=== PATIENT | female | born 1995 ===

== ENCOUNTER 2018-06-18 18:52 | Emergency (ER) | payer MEDICAID ==
[2018-06-18 19:10] VITALS: TEMP 98.4; O2SAT 98; BMI 34.1
--- NOTE | 2018-06-18 20:35 | C.PDOC ---
History Of Present Illness Patient comes in complaining of right ankle pain for one week. She states she twisted extremity last week was seen at [facility] had xrays and told it was sprained. Patient has not taken any medications. She continues to have pain. She needs note for work stating she cannot be on her feet. Denies any new injury. Time Seen by Provider: 06/18/18 19:09 Chief Complaint (Nursing): Lower Extremity Problem/Injury History Per: Patient History/Exam Limitations: no limitations Onset/Duration Of Symptoms: Days Past Medical History Reviewed: Historical Data, Nursing Documentation, Vital Signs Vital Signs: Last Vital Signs Temp 98.4 F 06/18/18 19:01 Pulse 100 H 06/18/18 19:01 Resp 16 06/18/18 19:01 BP 112/78 06/18/18 19:01 Pulse Ox 98 06/18/18 19:01 - Medical History PMH: No Chronic Diseases Family History: States: Unknown Family Hx - Social History Hx Alcohol Use: No Hx Substance Use: No - Immunization History Hx Tetanus Toxoid Vaccination: No Hx Influenza Vaccination: No Hx Pneumococcal Vaccination: No Review Of Systems Except As Marked, All Systems Reviewed And Found Negative. Musculoskeletal: Positive for: Foot Pain Physical Exam - Physical Exam Appears: Non-toxic, No Acute Distress Skin: Warm, Dry, No Ecchymosis Head: Atraumatic, Normacephalic Eye(s): bilateral: Normal Inspection Neck: Normal ROM Chest: Symmetrical Extremity: Normal ROM, No Calf Tenderness, No Deformity, No Swelling, Other (Ri ght ankle and foot with nonfocal tenderness. Normal ROM, no swelling, no ecchymosis) ED Course And Treatment O2 Sat by Pulse Oximetry: 98 Medical Decision Making Medical Decision Making: Patient with ankle sprain and no new injury. Motrin PO given. Advise patient needs to take analgesic to help with pain. Work note provided Disposition Counseled Patient/Family Regarding: Diagnosis, Need For Followup, Rx Given - Disposition Referrals: [facility] [Outside] [facility] [Outside] Disposition: HOME/ ROUTINE Disposition Time: 20:28 Condition: GOOD Additional Instructions: Please apply ice to area 15 minutes three times a day. Take Motrin as needed for pain every 6 hours, with food to not upset stomach. Follow up with orthopedic if pain persists over one week Prescriptions: Ibuprofen [Motrin] 600 mg PO Q8 #30 tab Instructions: Ankle Sprain (DC) Forms: [employer] ([place]), Work Excuse - POA Present On Arrival: None - Clinical Impression Clinical Impression: Ankle sprain
[2018-06-18 20:56] VITALS: BP 109/73; PULSE 88; RESP 20
== END 2018-06-18 20:56 | disposition home or self-care (01) ==
LOC: C.ER 18:52
DX: S93.401D Sprain of unspecified ligament of right ankle, subsequent encounter (principal); X50.9XXD Other and unspecified overexertion or strenuous movements or postures, subsequent encounter

== ENCOUNTER 2018-07-01 23:47 | Emergency (ER) | payer MEDICAID ==
[2018-07-01 23:47] VITALS: BMI 34.1
[2018-07-01 23:57] VITALS: O2SAT 100
[2018-07-02] MEDS ORDERED: Sodium Chloride 0.9% 1,000 ML ONE ×2 (00:07→04:05)
--- NOTE | 2018-07-02 00:07 | C.PDOC ---
History Of Present Illness Patient presents with vomiting and diarrhea that began at 6pm. States that she has been staying in a retirement and other residents are also ill. She has abdominal cramping but denies fever or chills. LMP 06/17 was normal. Time Seen by Provider: 07/01/18 23:59 Chief Complaint (Nursing): Abdominal Pain History Per: Patient History/Exam Limitations: no limitations Onset/Duration Of Symptoms: Hrs (6) Current Symptoms Are (Timing): Still Present Severity: Moderate Location Of Pain/Discomfort: Diffuse Radiation Of Pain To:: None Quality Of Discomfort: Cramping, "Pain" Associated Symptoms: Nausea, Vomiting, Diarrhea Exacerbating Factors: None Past Medical History Vital Signs: Last Vital Signs Temp 98.3 F 07/01/18 23:54 Pulse 82 07/01/18 23:54 Resp 20 07/01/18 23:54 BP 123/72 07/01/18 23:54 Pulse Ox 100 07/01/18 23:54 - Medical History PMH: No Chronic Diseases Surgical History: No Surg Hx Family History: States: No Known Family Hx - Social History Hx Alcohol Use: No Hx Substance Use: No - Immunization History Hx Tetanus Toxoid Vaccination: No Hx Influenza Vaccination: No Hx Pneumococcal Vaccination: No Review Of Systems Constitutional: Negative for: Fever, Chills Cardiovascular: Negative for: Chest Pain Respiratory: Negative for: Cough Gastrointestinal: Positive for: Nausea, Vomiting, Abdominal Pain, Diarrhea Physical Exam - Physical Exam Appears: In Acute Distress (vomiting on arrival) Skin: Normal Color, Warm, Dry Head: Atraumatic Nose: Normal Oral Mucosa: Moist Lymphatic: No Adenopathy Chest: Symmetrical Cardiovascular: Rhythm Regular Respiratory: Normal Breath Sounds Gastrointestinal/Abdominal: Bowel Sounds, Soft, No Tenderness, No Distention, No Guarding Neurological/Psych: Oriented x3, Normal Speech, Normal Cognition ED Course And Treatment - Laboratory Results Result Diagrams: 07/02/18 00:17 07/02/18 00:17 O2 Sat by Pulse Oximetry: 100 Disposition - Disposition Disposition Time: 00:50 Condition: STABLE Forms: [facility] (Citizen [place]) - Clinical Impression Clinical Impression: Nausea, Vomiting, Diarrhea Physician Patient Turnover Patient Signed Over To: Cherie Vázquez Handoff Comments: pending labs and improvement in symptoms
[2018-07-02] MEDS: Sodium Chloride 0.9% 1,000 ML IV ONE ×2 (00:18→04:07)
[2018-07-02 00:20] LABS: BASO % 0.3 % (0.0-2.0); EOS # 0.1 K/uL (0.0-0.7); EOS % 0.6 % (0.0-4.0); HEMOGLOBIN 12.5 g/dL (11.0-16.0); LYMPH # 1.1 K/uL (1.0-4.3); LYMPH % 8.7 % (20.0-40.0); MEAN CORPUSCULAR HEMOGLOBIN 29.9 pg (27.0-31.0); MEAN CORPUSCULAR HGB CONC 32.8 g/dL (33.0-37.0); MEAN PLATELET VOLUME 7.4 fL (7.2-11.7); MONO # 0.7 K/uL (0.0-0.8); MONO % 5.3 % (0.0-10.0); NEUT # 10.8 K/uL (1.8-7.0); NEUT % 85.1 % (50.0-75.0); PLATELET COUNT 291 K/uL (130-400); RBC 4.19 Mil/uL (3.80-5.20); RED CELL DISTRIBUTION WIDTH 12.4 % (11.5-14.5); WHITE BLOOD COUNT 12.7 K/uL (4.8-10.8)
[2018-07-02 00:24] LABS: HCG,QUALITATIVE URINE NEGATIVE (NEGATIVE)
[2018-07-02 00:36] LABS: ALBUMIN 4.4 g/dL (3.5-5.0); ALT/SGPT 8 U/L (9-52); AST/SGOT 22 U/L (14-36); BLOOD UREA NITROGEN 11 mg/dL (7-17); GFR NON-AFRICAN AMERICAN > 60; LIPASE 27 U/L (23-300)
[2018-07-02 00:38] LABS: SQUAMOUS EPITHIAL 7 /hpf (0-5); URINE BACTERIA RARE (<OCC); URINE BILIRUBIN NEGATIVE (NEGATIVE); URINE CLARITY Hazy (Clear); URINE COLOR Yellow (YELLOW); URINE GLUCOSE (UA) NORMAL (Normal); URINE LEUKOCYTE ESTERASE NEG Leu/uL (Negative); URINE PROTEIN 1+ mg/dL (NEGATIVE); URINE UROBILINOGEN NORMAL mg/dL (0.2-1.0)
[2018-07-02 01:27] LABS: URINE BLOOD 1+ (NEGATIVE)
[2018-07-02 01:43] LABS: BANDS 1 % (0-2); EOSINOPHIL 1 % (0-4); LYMPHOCYTE 7 % (20-40); MONOCYTE 7 % (0-10); NEUTROPHIL 84 % (50-75); PLATELET ESTIMATE NORMAL (NORMAL); TOTAL CELLS COUNTED 100
[2018-07-02 03:37] VITALS: BP 121/72; PULSE 84; RESP 16; TEMP 98.4
== END 2018-07-02 06:04 | disposition home or self-care (01) ==
LOC: C.ER 23:47
DX: R11.2 Nausea with vomiting, unspecified (principal); R19.7 Diarrhea, unspecified
CPT/HCPCS: 80053; 81001; 83690; 84703; 85025; 96361; 96372; 96374; 96375; 99283; J0500; J2405; J2765; J7030